=== PATIENT | female | born 1980 | race African-American/Black ===

== ENCOUNTER → 2020-03-30 | Outpatient (CLI) | payer OTHER ==
[2020-03-30 14:18] LABS: HEMATOCRIT 29.1 % (36.0-47.0); HEMOGLOBIN 10.3 g/dL (12.0-15.5); MEAN CORPUSCULAR HEMOGLOBIN 29 pg (25-35); MEAN CORPUSCULAR HGB CONC 35 g/dL (31-37); MEAN CORPUSCULAR VOLUME 82 fL (79-100); PLATELET COUNT 307 x10^3/uL (140-400); RED BLOOD COUNT 3.55 x10^6/uL (3.50-5.40); RED CELL DISTRIBUTION WIDTH 13.3 % (11.5-14.5); WHITE BLOOD COUNT 7.1 x10^3/uL (4.0-11.0)
[2020-03-30 14:52] LABS: FREE T4 0.88 ng/dL (0.76-1.46); THYROID STIM HORMONE (TSH) 2.333 uIU/mL (0.358-3.74)
[2020-03-31 18:09] LABS: RUBELLA IGG ANTIBODY 0.92 index (Immune >0.99)
== END | disposition home or self-care (01) ==
LOC: LAB 12:44
PROVIDERS: ATTEND Obstetrics & Gynecology
DX: O09.92 Supervision of high risk pregnancy, unspecified, second trimester (principal); Z3A.00 Weeks of gestation of pregnancy not specified
CPT/HCPCS: 36415; 82950; 84439; 84443; 85027; 85660; 86592; 86703; 86762; 86787; 86803; 86850; 86900; 86901; 87340

== ENCOUNTER → 2020-04-13 | Outpatient (CLI) | payer OTHER ==
--- NOTE | 2020-04-13 17:56 | KCIC ---
EXAM: Ultrasound OB Greater than 14 weeks INDICATION: Reason: Encounter for 2nd Trimester / Spl. Instructions: / History: TECHNIQUE: Real-time obstetrical ultrasound was performed with permanent freeze-frame documentation. COMPARISON: None. FINDINGS: POSITION: Cephalic HEART RATE: 137 bpm TU: 11.9 cm PLACENTA: Posterior CERVICAL LENGTH: 5.6 cm MATERNAL UTERUS: Unremarkable. MATERNAL ADNEXA: Unremarkable. AGE/DATES: Gestational Age by LMP: 31 weeks 0 days Gestation Age by US: 30 weeks 0 days EDC by LMP: June 15, 2020 EDC by US: June 22, 2020 WEIGHT: 1425 grams +/- 211 grams PERCENTILE WEIGHT: 30% BIOMETRIC PARAMETERS: BPD: 7.6 cm corresponding with 30 weeks 3 days HC: 27.9 cm corresponding with 30 weeks 4 days AC: 25.5 cm corresponding with 29 weeks 5 days FL: 5.5 cm corresponding with 29 weeks 0 days ANATOMY: CARDIAC: Normal four chamber heart. Normal left ventricular outflow tract. The right ventricle outflow tract was not well seen. UMBILICAL CORD: Normal 3 vessel cord. Normal cord insertion. BRAIN: Unremarkable. NOSE/LIPS: Unremarkable. SPINE: Unremarkable. EXTREMITIES: Unremarkable. STOMACH: Unremarkable. KIDNEYS: Unremarkable. BLADDER: Unremarkable. IMPRESSION: Normal OB ultrasound demonstrating a single viable fetus in cephalic position. Estimated gestational age of 30 weeks and 0 days and EDC of June 22, 2020. Electronically signed by: Chip Ortiz MD (04/13/2020 5:53 PM) [id number]
== END ==
LOC: KCIC US 14:43
PROVIDERS: ATTEND Obstetrics & Gynecology
DX: Z34.93 Encounter for supervision of normal pregnancy, unspecified, third trimester (principal); Z3A.30 30 weeks gestation of pregnancy
CPT/HCPCS: 76805

== ENCOUNTER 2020-06-11 12:36 | Inpatient (IN) | payer OTHER ==
[~2020-06-11] VITALS: Ht 172.7 cm; Wt 98.0 kg
[2020-06-11 13:01] VITALS: BP 176/90
[2020-06-11] MEDS: IV RINGERS,LACTATED 1000ML 1,000 ML IV SCH ×2 (13:35→21:35)
[2020-06-11] MEDS ORDERED: LIDOCAINE 1% PF 30 ML VIAL. INJ PRN (13:45)
[2020-06-11] MEDS ORDERED: BUTORPHANOL 2 MG/ML VIAL. IVP PRN ×2 (13:45)
[2020-06-11] MEDS ORDERED: OXYTOCIN 30 UNIT/500 ML PREMIX 500 ML IV PRN ×3 (13:45→22:15)
[2020-06-11] MEDS ORDERED: 0.9 % SODIUM CHLORIDE 10 ML DISP.SYRIN. IV PRN ×2 (13:45→22:15)
[2020-06-11] MEDS ORDERED: LABETALOL 20 MG/4 ML DISP.SYRIN. IVP ONE ×3 (13:45→17:15)
[2020-06-11] MEDS ORDERED: ACETAMINOPHEN 325 MG TABLET. PO PRN ×2 (13:45→22:15)
[2020-06-11] MEDS ORDERED: TERBUTALINE 1 MG/ML VIAL. SQ PRN (13:45)
[2020-06-11 14:14] LABS: BASO # 0.1 x10^3/uL (0.0-0.2); BASO % 2 % (0-3); EOS # 0.1 x10^3/uL (0.0-0.7); EOS % 1 % (0-3); HEMATOCRIT 31.8 % (36.0-47.0); LYMPH # 4.4 x10^3/uL (1.0-4.8); LYMPH % 46 % (24-48); MEAN CORPUSCULAR HEMOGLOBIN 28 pg (25-35); MEAN CORPUSCULAR HGB CONC 35 g/dL (31-37); MEAN CORPUSCULAR VOLUME 80 fL (79-100); MONO # 0.5 x10^3/uL (0.0-1.1); MONO % 5 % (0-9); NEUT # 4.4 x10^3/uL (1.8-7.7); NEUT % 46 % (31-73); PLATELET COUNT 334 x10^3/uL (140-400); RED BLOOD COUNT 3.97 x10^6/uL (3.50-5.40); RED CELL DISTRIBUTION WIDTH 14.6 % (11.5-14.5); WHITE BLOOD COUNT 9.6 x10^3/uL (4.0-11.0)
[2020-06-11] MEDS ORDERED: PENICILLIN G K 5,000,000 UNIT in IV DEXTROSE 5% 100ML 100 ML IV ONE (14:15)
[2020-06-11] MEDS ORDERED: IV RINGERS,LACTATED 1000ML 1,000 ML IV ONE (14:37)
[2020-06-11] MEDS ORDERED: fentaNYL PF VIAL 100 MCG/2 ML VIAL ONE (14:38)
[2020-06-11] MEDS ORDERED: ROPIVacaine 0.2% PF 10 ML VIAL. ONE ×2 (14:38→15:00)
[2020-06-11] MEDS ORDERED: NALOXONE 0.4 MG/ML VIAL. IV PRN (14:45)
[2020-06-11] MEDS ORDERED: ePHEDrine PF IN SALINE 50 MG/10 ML SYRINGE. IV PRN (14:45)
[2020-06-11] MEDS ORDERED: L&D EPIDURAL SYRINGE 50 ML EPID PRN (14:45)
[2020-06-11] MEDS ORDERED: ONDANSETRON PF 4 MG/2 ML VIAL. IV PRN (14:45)
[2020-06-11] MEDS ORDERED: L&D EPIDURAL 50 ML SYRINGE. ONE (15:00)
[2020-06-11] MEDS ORDERED: OXYTOCIN PREMIX 30 UNIT/500 ML NS BAG. IV ONE (15:00)
[2020-06-11 15:02] LABS: ALBUMIN 2.6 g/dL (3.4-5.0); ALBUMIN/GLOBULIN RATIO 0.7 (1.0-1.7); CALCIUM 9.5 mg/dL (8.5-10.1); CREATININE 0.5 mg/dL (0.6-1.0); GFR 167.1; POTASSIUM 3.4 mmol/L (3.5-5.1); TOTAL BILIRUBIN 0.4 mg/dL (0.2-1.0); TOTAL PROTEIN 6.4 g/dL (6.4-8.2); URIC ACID 7.1 mg/dL (2.6-6.0)
--- NOTE | 2020-06-11 15:35 | PDOC1 ---
CHIEF OF SAFETY AND PROTECTION H&P Date of Admission: Date of Admission: Jun 11, 2020 at 12:36 History of Present Illness: EDC: 06/25/20 LMP: 09/25/19 40y @ 38.0 by 27wk u/s presents to L&D with ctxs. On presentation the pt was found to be 5 cm dilated, so she was subsequently admitted. The pt was also found to have a severe range BP so she was txed with Labetalol 20 mg IV. Her BP improved, but after some time the pt required another dose of Labetalol 20 mg IV. The pt denies ROUSSEAU, changes in vision or abd pain. PMH: cHTN PSH: Denies Meds: PNV All: NKDA OBHx: 5 x TSVD SH: no tob, no EtOH FH: noncontributory Medications: Meds: Current Medications Medications (Trade) Dose Ordered Sig/Johanne Route PRN Reason Start Time Stop Time Status Last Admin Dose Admin Butorphanol Tartrate (Stadol) 2 mg PRN Q1HR PRN IVP Severe labor pain 06/11/20 13:45 06/11/20 13:51 Labetalol HCl (Normodyne Iv Push) 20 mg 1X ONCE IVP 06/11/20 13:45 06/11/20 13:46 DC 06/11/20 13:52 Labetalol HCl (Normodyne Iv Push) 20 mg 1X ONCE IVP 06/11/20 14:30 06/11/20 14:31 DC 06/11/20 14:33 Allergies: Coded Allergies: No Known Drug Allergies (Unverified , 06/11/20) Physical Exam: Vital Signs: Vital Signs Date Time Temp Pulse Resp B/P (MAP) Pulse Ox O2 Delivery O2 Flow Rate FiO2 06/11/20 14:33 83 172/81 06/11/20 13:51 16 Room Air PE: GENERAL: No apparent distress. Alert and oriented. HEENT: Head normocephalic, atraumatic. NECK: Supple LUNGS: Clear to auscultation. HEART: RRR, S1, S2 present, pulses intact ABDOMEN: Soft, positive bowel sounds. EXTREMITIES: No cyanosis or edema. NEUROLOGIC: Normal speech, normal tone PSYCHIATRIC: Normal affect, normal mood. SKIN: No ulceration. FHT: 130s +acels/no decels/mLTV [place]: 1-2 min SVE: 7/C/-1 Labs: Laboratory Tests Test 06/11/20 14:05 White Blood Count 9.6 x10^3/uL (4.0-11.0) Red Blood Count 3.97 x10^6/uL (3.50-5.40) Hemoglobin 11.0 g/dL (12.0-15.5) L Hematocrit 31.8 % (36.0-47.0) L Mean Corpuscular Volume 80 fL (79-100) Mean Corpuscular Hemoglobin 28 pg (25-35) Mean Corpuscular Hemoglobin Concent 35 g/dL (31-37) Red Cell Distribution Width 14.6 % (11.5-14.5) H Platelet Count 334 x10^3/uL (140-400) Neutrophils (%) (Auto) 46 % (31-73) Lymphocytes (%) (Auto) 46 % (24-48) Monocytes (%) (Auto) 5 % (0-9) Eosinophils (%) (Auto) 1 % (0-3) Basophils (%) (Auto) 2 % (0-3) Neutrophils # (Auto) 4.4 x10^3/uL (1.8-7.7) Lymphocytes # (Auto) 4.4 x10^3/uL (1.0-4.8) Monocytes # (Auto) 0.5 x10^3/uL (0.0-1.1) Eosinophils # (Auto) 0.1 x10^3/uL (0.0-0.7) Basophils # (Auto) 0.1 x10^3/uL (0.0-0.2) Sodium Level 139 mmol/L (136-145) Potassium Level 3.4 mmol/L (3.5-5.1) L Chloride Level 101 mmol/L (98-107) Carbon Dioxide Level 20 mmol/L (21-32) L Anion Gap 18 (6-14) H Blood Urea Nitrogen 7 mg/dL (7-20) Creatinine 0.5 mg/dL (0.6-1.0) L Estimated GFR (Cockcroft-Gault) 167.1 BUN/Creatinine Ratio 14 (6-20) Glucose Level 88 mg/dL (70-99) Uric Acid 7.1 mg/dL (2.6-6.0) H Calcium Level 9.5 mg/dL (8.5-10.1) Total Bilirubin 0.4 mg/dL (0.2-1.0) Aspartate Amino Transferase (AST) 19 U/L (15-37) Alanine Aminotransferase (ALT) 14 U/L (14-59) Alkaline Phosphatase 99 U/L (46-116) Lactate Dehydrogenase 139 U/L (81-234) Total Protein 6.4 g/dL (6.4-8.2) Albumin 2.6 g/dL (3.4-5.0) L Albumin/Globulin Ratio 0.7 (1.0-1.7) L Treponema pallidum Antibody Nonreactive (Nonreactive) Laboratory Tests 06/11/20 14:05 Laboratory Tests 06/11/20 14:05 Laboratory Tests 06/11/20 14:05 Assessment & Plan: A/P 40y @ 38.0 by 27wk u/s 1.) Active labor 2.) Late presentation to care 3.) AMA - declines NIPT 4.) cHTN pt did not get baseline PIH labs, baseline urine Pr/Cr 0.12, two severe range BPs requiring IV tx, PIH labs wnl 5.) Nexplanon PP 6.) Social issues 7.) Anemia Hgb 11.0 8.) Elevated GTT - never completed 3hr GTT 9.) Rub equiv 10.) Quentin NI 11.) Fetus cat I FHT 12.) GBS pos on PCN 13.) Luiz Sarkar (noris) REGINE HERNANDEZ MD Jun 11, 2020 15:35
--- NOTE | 2020-06-11 15:45 | PDOC ---
VAGINAL DELIVERY DATE DATE: 06/11/20 TIME: 15:44 TIME After the epidural was complete the pts cervical examined and was found to be complete with a bulging bag. AROM performed revealing thick mec. Patient delivered a viable male in OA position over intact perineum at 1511. Wt 5 lb 10.5 oz. Apgars 4/6/8. With delivery the cord revealed a true knot. Placenta delivered spontaneously, intact with 3VC. No lacerations noted. Good hemostasis noted. 20 U of Pit given with IVF. EBL 200cc. WEIGHT Weight [ ] REGINE HERNANDEZ MD Jun 11, 2020 15:45
[2020-06-11] MEDS: PENICILLIN G K 2,500,000 UNIT in IV DEXTROSE 5% 50 ML IV SCH ×2 (19:00→23:00)
[2020-06-11] MEDS ORDERED: IV NORMAL SALINE 1000ML BAG 1,000 ML IV SCH (19:16)
[2020-06-11 21:15] VITALS: BP 106/79
[2020-06-11] MEDS ORDERED: TDaP (Adacel) per PROTOCOL. MC PRN (22:15)
[2020-06-11] MEDS ORDERED: DOCUSATE SODIUM 100 MG CAPSULE. PO PRN (22:15)
[2020-06-11] MEDS ORDERED: PHENYLEPH/MINERAL OIL/PETROLAT RECTAL OINTMENT TUBE. RC PRN (22:15)
[2020-06-11] MEDS ORDERED: SIMETHICONE 80 MG TAB.CHEW PO PRN (22:15)
[2020-06-11] MEDS ORDERED: MAGNESIUM HYDROXIDE 2,400 MG/30 ML ORAL.SUSP. PO PRN (22:15)
[2020-06-11] MEDS ORDERED: HYDROCORTISONE 1% TOPICAL OINTMENT 30GM TUBE. TP PRN (22:15)
[2020-06-11] MEDS ORDERED: ZOLPIDEM 5 MG TABLET. PO PRN (22:15)
[2020-06-11] MEDS ORDERED: MAG HYDROX/ALUMINUM HYD/SIMETH 30 ML ORAL.SUSP PO PRN (22:15)
[2020-06-11] MEDS ORDERED: diphenhydrAMINE HCL 25 MG CAPSULE PO PRN (22:15)
[2020-06-11] MEDS ORDERED: MMR per PROTOCOL. MC PRN (22:15)
[2020-06-11] MEDS ORDERED: BENZOCAINE 20% TOPICAL AEROSOL SPRAY 57GM CAN. TP PRN (22:15)
[2020-06-11] MEDS: IBUPROFEN 400 MG TABLET. PO PRN (22:26)
[2020-06-12 00:59] VITALS: BP 134/72
[2020-06-12] MEDS: PENICILLIN G K 2,500,000 UNIT in IV DEXTROSE 5% 50 ML IV SCH (03:00)
[2020-06-12] MEDS: IV RINGERS,LACTATED 1000ML 1,000 ML IV SCH (03:52)
[2020-06-12] MEDS: oxyCODONE/APAP 5/325 1 TAB TABLET PO PRN ×2 (03:58→15:02)
[2020-06-12 04:57] VITALS: BP 146/95
[2020-06-12] MEDS: FERROUS SULFATE 325 MG TABLET. PO SCH ×2 (08:00→17:00)
[2020-06-12 08:12] LABS: HEMATOCRIT 28.1 % (36.0-47.0); HEMOGLOBIN 9.7 g/dL (12.0-15.5); RED BLOOD COUNT 3.5 x10^6/uL (3.50-5.40); RED CELL DISTRIBUTION WIDTH 14.8 % (11.5-14.5); WHITE BLOOD COUNT 10.9 x10^3/uL (4.0-11.0)
[2020-06-12] MEDS: PRENATAL MULTIVITAMIN TABLET. PO SCH (09:00)
--- NOTE | 2020-06-12 11:40 | PDOC ---
COMPLIANCE SPECIALIST PROGRESS NOTE Date of Service: DATE: 06/12/20 TIME: 11:37 Subjective: Pt with good pain control. Isreal PO. Voiding. Minimal lochia. Denies ROUSSEAU, changes in vision or abd pain. Objective: Vital Signs: Vital Signs Date Time Temp Pulse Resp B/P (MAP) Pulse Ox O2 Delivery O2 Flow Rate FiO2 06/11/20 13:01 99 176/90 (118) 06/11/20 13:21 97.9 97.9 06/11/20 13:51 16 Room Air 06/11/20 21:15 96 Vital Signs Date Time Temp Pulse Resp B/P (MAP) Pulse Ox O2 Delivery O2 Flow Rate FiO2 06/12/20 05:00 Room Air 06/12/20 04:57 98.7 80 18 146/95 (112) 96 98.7 Labs: Laboratory Tests Test 06/11/20 13:40 06/11/20 14:05 06/12/20 07:41 SARS-CoV-2 Antigen (Rapid) Negative (NEGATIVE) White Blood Count 9.6 x10^3/uL (4.0-11.0) 10.9 x10^3/uL (4.0-11.0) Red Blood Count 3.97 x10^6/uL (3.50-5.40) 3.50 x10^6/uL (3.50-5.40) Hemoglobin 11.0 g/dL (12.0-15.5) L 9.7 g/dL (12.0-15.5) L Hematocrit 31.8 % (36.0-47.0) L 28.1 % (36.0-47.0) L Mean Corpuscular Volume 80 fL (79-100) 80 fL (79-100) Mean Corpuscular Hemoglobin 28 pg (25-35) 28 pg (25-35) Mean Corpuscular Hemoglobin Concent 35 g/dL (31-37) 34 g/dL (31-37) Red Cell Distribution Width 14.6 % (11.5-14.5) H 14.8 % (11.5-14.5) H Platelet Count 334 x10^3/uL (140-400) 288 x10^3/uL (140-400) Neutrophils (%) (Auto) 46 % (31-73) Lymphocytes (%) (Auto) 46 % (24-48) Monocytes (%) (Auto) 5 % (0-9) Eosinophils (%) (Auto) 1 % (0-3) Basophils (%) (Auto) 2 % (0-3) Neutrophils # (Auto) 4.4 x10^3/uL (1.8-7.7) Lymphocytes # (Auto) 4.4 x10^3/uL (1.0-4.8) Monocytes # (Auto) 0.5 x10^3/uL (0.0-1.1) Eosinophils # (Auto) 0.1 x10^3/uL (0.0-0.7) Basophils # (Auto) 0.1 x10^3/uL (0.0-0.2) Sodium Level 139 mmol/L (136-145) Potassium Level 3.4 mmol/L (3.5-5.1) L Chloride Level 101 mmol/L (98-107) Carbon Dioxide Level 20 mmol/L (21-32) L Anion Gap 18 (6-14) H Blood Urea Nitrogen 7 mg/dL (7-20) Creatinine 0.5 mg/dL (0.6-1.0) L Estimated GFR (Cockcroft-Gault) 167.1 BUN/Creatinine Ratio 14 (6-20) Glucose Level 88 mg/dL (70-99) Uric Acid 7.1 mg/dL (2.6-6.0) H Calcium Level 9.5 mg/dL (8.5-10.1) Total Bilirubin 0.4 mg/dL (0.2-1.0) Aspartate Amino Transferase (AST) 19 U/L (15-37) Alanine Aminotransferase (ALT) 14 U/L (14-59) Alkaline Phosphatase 99 U/L (46-116) Lactate Dehydrogenase 139 U/L (81-234) Total Protein 6.4 g/dL (6.4-8.2) Albumin 2.6 g/dL (3.4-5.0) L Albumin/Globulin Ratio 0.7 (1.0-1.7) L Treponema pallidum Antibody Nonreactive (Nonreactive) Laboratory Tests 06/11/20 14:05 06/12/20 07:41 Laboratory Tests 06/11/20 14:05 Laboratory Tests 06/11/20 14:05 06/12/20 07:41 Physical Exam: GENERAL: No apparent distress. Alert and oriented. HEENT: Head normocephalic, atraumatic. NECK: Supple LUNGS: Clear to auscultation. HEART: RRR, S1, S2 present, pulses intact ABDOMEN: Soft, positive bowel sounds. EXTREMITIES: No cyanosis or edema. NEUROLOGIC: Normal speech, normal tone PSYCHIATRIC: Normal affect, normal mood. SKIN: No ulceration. FFNT below umb no C/C/E Assessment & Plan: A/P 40y PPD #1 s/p 1.) PP - doing well 2.) cHTN required IV labetalol x 3 during labor and once after delivery, remains w/o s/s of preeclampsia, PIH labs nml on admission 3.) Nexplanon PP 4.) Anemia Hgb 11.0 -> 9.7, on Fe 5.) Rub equiv 6.) Quentin NI 7.) Luiz Sarkar (noris) REGINE HERNANDEZ MD Jun 12, 2020 11:40
[2020-06-12 15:55] VITALS: BP 145/84
[2020-06-12 21:53] VITALS: BP 124/76
[2020-06-13 06:11] VITALS: BP 129/78
[2020-06-13] MEDS: PRENATAL MULTIVITAMIN TABLET. PO SCH (09:00)
[2020-06-13] MEDS: FERROUS SULFATE 325 MG TABLET. PO SCH (10:16)
[2020-06-13] MEDS: IBUPROFEN 400 MG TABLET. PO PRN (10:16)
--- NOTE | 2020-06-13 10:54 | PDOC ---
DATA PROCESSING SYSTEMS CONSULTANT PROGRESS NOTE Date of Service: DATE: 06/13/20 TIME: 10:53 Subjective: Pt with good pain control. Isreal PO. Voiding. Minimal lochaie. Denies ROUSSEAU, changes in vision, or abd pain. Objective: Vital Signs: Vital Signs Date Time Temp Pulse Resp B/P (MAP) Pulse Ox O2 Delivery O2 Flow Rate FiO2 06/12/20 08:20 Room Air 06/12/20 15:02 18 06/12/20 15:55 98.3 79 145/84 (104) 96 98.3 Vital Signs Date Time Temp Pulse Resp B/P (MAP) Pulse Ox O2 Delivery O2 Flow Rate FiO2 06/13/20 09:00 Room Air 06/13/20 06:11 98.3 79 16 129/78 (95) 98 98.3 Physical Exam: GENERAL: No apparent distress. Alert and oriented. HEENT: Head normocephalic, atraumatic. NECK: Supple LUNGS: Clear to auscultation. HEART: RRR, S1, S2 present, pulses intact ABDOMEN: Soft, positive bowel sounds. EXTREMITIES: No cyanosis or edema. NEUROLOGIC: Normal speech, normal tone PSYCHIATRIC: Normal affect, normal mood. SKIN: No ulceration. FFNT below umb no C/C/E Assessment & Plan: A/P 40y PPD #2 s/p 1.) PP - doing well 2.) cHTN required IV labetalol x 3 during labor and once after delivery, remains w/o s/s of preeclampsia, PIH labs nml on admission, BP nml over last 24hrs 3.) Nexplanon PP 4.) Anemia Hgb 11.0 -> 9.7, on Fe 5.) Rub equiv 6.) Quentin NI 7.) Boy - Mello (noris) 8.) D/c home REGINE HERNANDEZ MD Jun 13, 2020 10:54
[2020-06-13] MEDS ORDERED: DOCU-109 PO (10:56)
[2020-06-13] MEDS ORDERED: FERR325T14 PO (10:56)
[2020-06-13] MEDS ORDERED: IBUP-1060 PO (10:56)
--- NOTE | 2020-06-13 12:03 | DS ---
DATE OF DISCHARGE: 06/13/2020 ADMISSION DIAGNOSES: 1. Intrauterine at 38 weeks and 0 days by 27-week ultrasound. 2. Active labor. 3. Chronic hypertension vs chronic hypertension with superimposed preeclampsia. 4. Late presentation to care. 5. Advanced maternal age. 6. Anemia. 7. Elevated GTT but never had 3-hour GTT. 8. Rubella equivocal. 9. Varicella nonimmune. 10. GBS positive. DISCHARGE DIAGNOSES: 1. Intrauterine at 38 weeks and 0 days by 27-week ultrasound. 2. Active labor. 3. Chronic hypertension vs chronic hypertension with superimposed preeclampsia. 4. Late presentation to care. 5. Advanced maternal age. 6. Anemia. 7. Elevated GTT but never had 3-hour GTT. 8. Rubella equivocal. 9. Varicella nonimmune. 10. GBS positive. PROCEDURE: Spontaneous vaginal delivery. BRIEF HOSPITAL COURSE: The patient is a 40-year-old 6, para 5-0-0-5, who presented to Labor and Delivery at 38 weeks and 0 days by 27-week ultrasound with contractions. The patient was found to be 5 cm dilated, so she was subsequently admitted. The patient had a severe range blood pressure on presentation as well. She was treated with IV labetalol 20. Her blood pressures improved. After some time, the patient required additional dose of 20 labetalol. The patient remained without signs or symptoms of preeclampsia, so magnesium was not initiated. The patient ultimately delivered by vaginal delivery early that afternoon. See delivery note for full detail. After delivery, the patient had one more severe range blood pressures requiring IV labetalol, but her subsequent blood pressures after that last treatment required no additional treatment. By day #2, the patient was doing well and desired discharge home. Of note, on presentation, hemoglobin was 11.0; after delivery, it dropped to 9.7. Her iron was continued throughout the . DISCHARGE INSTRUCTIONS: The patient was told not to lift anything greater than 20 pounds, have pelvic rest for 6 weeks. CALL IF: The patient was to call if she had fevers, chills, nausea, vomiting, abdominal pain, headache, changes in vision or any additional questions or concerns. FOLLOWUP APPOINTMENT: The patient is to follow up on 06/19/2020 for blood pressure check. DISCHARGE MEDICATIONS: The patient was given a prescription for Motrin 800 mg 30 pills, Colace 100 mg 30 pills and ferrous sulfate 325 mg 30 pills. REGINE HERNANDEZ MD DR: Thania JOB#: [id number] / [id number] PRANEETH
[2020-06-13 12:45] VITALS: BP 145/84
[2020-06-13 15:45] VITALS: BP 145/80
--- NOTE | 2020-06-13 16:20 | NUR ---
Discharge Note: Pt. ambulatory, escorted by Neeru Laboy RN to vehicle with baby in car seat, significant other, and belongings present. Pt. discharged home. Mykel Lynn RN
--- NOTE | 2020-06-14 22:09 | PATHOLOGY ---
[facility] Accession Number: [id number] . 01 Material submitted: . placenta - PLACENTA WITH CORD . 01 Clinical history: . ADVANCED MATERNAL AGE, HYPERTENSION, EDC: 06-25-2020;GA: 40.0 . 02 Diagnosis: "Placenta with cord": - Third trimester placenta weighing 495 grams. - Three vessel umbilical cord with no significant inflammation. - Chorioamninotic membranes with diffuse mild to moderate acute chorioamnionitis. - Amnion with scattered pigmented macrophages. (CLW:felisa; 06/14/2020) S 06/14/2020 1527 Local . 02 Electronically signed: . Mita Begum MD, Pathologist NPI- [id number] . 01 Gross description: . The specimen is received in formalin, labeled "Mickie Milner, placenta". Received is a mcclure placenta with attached membranes and umbilical cord with a trimmed placental weight of 495 g and measuring 17.8 x 15.4 x 2.5 cm in greatest dimensions. The membranes are pink-biggs to preston-green in appearance, and the site of membrane rupture is at the placental margin. The surface is intact displaying a normal arborizing vasculature pattern, as well as a completely detached amnion. The trivascular umbilical cord measures 14.3 cm in length by 1.5 cm in diameter and inserts centrally, 6.3 cm from the closest placental margin. The umbilical cord is pale preston in appearance with moderate helical twisting. The maternal surface is intact and complete; a slight amount of adherent blood coagulum is seen on the surface. Sectioning reveals red-brown cut surfaces with no grossly distinct nodules or lesions. The specimen is submitted representatively as follows: . A1 proximal umbilical cord and surface vessels A2 umbilical cord and membrane roll A3-A4 merchandising representative sections of maternal surface. (CAA; 06/13/2020) QAC/QAC 06/13/2020 1748 Local . 02 Pathologist provided ICD-10: O41.1230, Z37.0, Z3A.39 . 02 CPT . 976846 Specimen Comment: Report sent to Performed at: 01 [facility] [address] [facility] [address], [place] [id number] MD Ravindra Austin MD Phone: [phone] Performed at: 02 [facility] [address] [place], [place] [id number] MD Josue Bolden MD Phone: [phone]
== END 2020-06-13 16:20 | disposition home or self-care (01) | DRG 806 ==
LOC: OBSVTOIN 12:36 → 3 SO LND 12:36 → 3 NORTH 20:58
PROVIDERS: ADMIT Obstetrics & Gynecology; ATTEND Obstetrics & Gynecology
PROC: 10E0XZZ Delivery of Products of Conception, External Approach (ICD-10-PCS; principal; 2020-06-11)
PROC: 10907ZC Drainage of Amniotic Fluid, Therapeutic from Products of Conception, Via Natural or Artificial Opening (ICD-10-PCS; 2020-06-11)
PROC: 3E0R3BZ Introduction of Anesthetic Agent into Spinal Canal, Percutaneous Approach (ICD-10-PCS; 2020-06-11)
PROC: 00HU33Z Insertion of Infusion Device into Spinal Canal, Percutaneous Approach (ICD-10-PCS; 2020-06-11)
DX: O69.2XX0 Labor and delivery complicated by other cord entanglement, with compression, not applicable or unspecified (principal); O10.92 Unspecified pre-existing hypertension complicating childbirth; Z37.0 Single live birth; O98.52 Other viral diseases complicating childbirth; O99.02 Anemia complicating childbirth; D64.9 Anemia, unspecified; O11.4 Pre-existing hypertension with pre-eclampsia, complicating childbirth; O99.824 Streptococcus B carrier state complicating childbirth; Z20.828 Contact with and (suspected) exposure to other viral communicable diseases; O77.0 Labor and delivery complicated by meconium in amniotic fluid; Z3A.38 38 weeks gestation of pregnancy
CPT/HCPCS: 36415; 80053; 83615; 84550; 85025; 85027; 86592; 86850; 86900; 86901; 87426; J0595; J2590; J2795; J3010; J3490; U0003; G0378

== ENCOUNTER 2021-06-20 13:34 | Emergency (ER) | payer MEDICAID, OTHER ==
[~2021-06-20] VITALS: Ht 172.7 cm; Wt 107.8 kg
[~2021-06-20 13:34] MED LIST: DOCU-109 PO; FERR325T14 PO; IBUP-1060 PO
[2021-06-20 13:55] VITALS: BP 156/90
--- NOTE | 2021-06-20 14:05 | PHYS DOC ---
Past Medical History Past Surgical History: No Surgical History General Adult EDM: Chief Complaint: BACK PAIN - NO INJURY HPI: HPI: Patient is a 41-year-old female who presents to the emergency department for left-sided thoracic back pain that started 3 days ago. Patient denies any injury or heavy lifting. She rates her pain 7 out of 10. No treatment prior to arrival. The pain is an ache. Is worse when laying flat. She denies any urinary symptoms, loss of bowel or bladder, saddle anesthesias or numbness or tingling down her extremities. Review of Systems: Review of Systems: 14 body systems of the review of systems have been reviewed. See HPI for pertinent positive and negative responses, otherwise all other systems are negative, nonpertinent or noncontributory Heart Score: C/O Chest Pain: N/A Risk Factors: Risk Factors: DM, Current or recent (<one month) smoker, HTN, HLP, family history of CAD, obesity. Risk Scores: Score 0 - 3: 2.5% MACE over next 6 weeks - Discharge Home Score 4 - 6: 20.3% MACE over next 6 weeks - Admit for Clinical Observation Score 7 - 10: 72.7% MACE over next 6 weeks - Early Invasive Strategies Allergies: Allergies: Allergies Coded Allergies Type Severity Reaction Last Updated Verified No Known Drug Allergies 06/11/20 No Physical Exam: PE: Constitutional: Well developed, well nourished, no acute distress, non-toxic appearance. [] HENT: Normocephalic, atraumatic, bilateral external ears normal, oropharynx moist, no oral exudates, nose normal. [] Eyes: PERRL, EOMI, conjunctiva normal, no discharge. [] Neck: Normal range of motion, no bony spinal cervical tenderness, supple, no s tridor. [] Cardiovascular:Heart rate regular rhythm, no murmur [] Lungs & Thorax: Bilateral breath sounds clear to auscultation [] Abdomen: Bowel sounds normal, soft, no tenderness, no masses, no pulsatile masses. [] Skin: Warm, dry, no erythema, no rash. [] Back: No bony spinal tenderness, no CVA tenderness, normal range of motion, left sided thoracic paraspinal tenderness with palpation. [] Extremities: No tenderness, no cyanosis, no clubbing, ROM intact, no edema. [] Neurologic: Alert and oriented X 3, normal motor function, normal sensory function, no focal deficits noted. [] Psychologic: Affect normal, judgement normal, mood normal. [] Current Patient Data: Labs: Laboratory Tests Test 06/20/21 14:15 Urine Collection Type Unknown Urine Color Yellow Urine Clarity Clear Urine pH 6.0 Urine Specific [place] 1.025 Urine Protein Negative mg/dL Urine Glucose (UA) Negative mg/dL Urine Ketones (Stick) Negative mg/dL Urine Blood Negative Urine Nitrite Negative Urine Bilirubin Negative Urine Urobilinogen Dipstick 1.0 mg/dL Urine Leukocyte Esterase Negative Urine RBC 0 /HPF Urine WBC 0 /HPF Urine Squamous Epithelial Cells Mod /LPF Urine Bacteria 0 /HPF Urine Mucus Mod /LPF Bedside Urine HCG, Qualitative Hcg negative Current Medications Medications (Trade) Dose Ordered Sig/Johanne Route PRN Reason Start Time Stop Time Status Last Admin Dose Admin Ketorolac Tromethamine (Toradol 30mg Vial) 30 mg 1X ONCE IM 06/20/21 14:45 06/20/21 14:49 DC 06/20/21 15:20 Orphenadrine Citrate (Norflex) 60 mg 1X ONCE IM 06/20/21 14:45 06/20/21 14:49 DC Vital Signs: Vital Signs Date Time Temp Pulse Resp B/P (MAP) Pulse Ox O2 Delivery O2 Flow Rate FiO2 06/20/21 13:55 98.4 68 20 156/90 (112) 99 Room Air 98.4 EKG: EKG: [] Radiology/Procedures: Radiology/Procedures: []PROCEDURE: CT THORACIC SPINE WO CONTRAST CT scan of the thoracic spine without contrast 06/20/2021 CLINICAL HISTORY: Mid back pain. TECHNIQUE: Unenhanced contiguous, 0.625 mm axial sections were obtained through the thoracic spine. 3 mm reconstructed sagittal, axial and coronal images were obtained. One or more of the following individualized dose reduction techniques were utilized for this study: 1. Automated exposure control. 2. Adjustment of the mA and/or kV according to patient size. 3. Use of iterative reconstruction technique. FINDINGS: Sagittal and coronal reconstructed images demonstrate minimal S-shaped curvature of the thoracolumbar spine. Degenerative changes consisting of vertebral endplate sclerosis and minimal to mild anterior vertebral body osteophyte formation is seen scattered throughout the thoracic disc spaces. Mild to moderate bullous changes are seen involving both upper lobes. No fracture or subluxation of the thoracic vertebrae is noted. Degenerative changes are seen involving the thoracic disc spaces consisting of minimal to mild generalized disc bulges and degenerative changes involving the facet joints. These findings do not result in significant central spinal canal or neural foraminal stenosis. IMPRESSION: Degenerative changes are seen involving the thoracic spine as discussed above. These findings do not result in significant central spinal canal or neural foraminal stenosis. No acute osseous abnormality is seen. Electronically signed by: William Noriega MD (06/20/2021 3:25 PM) [id number] DICTATED and SIGNED BY: WILLIAM NORIEGA MD DATE: 06/20/21 [id number] 0 Course & Med Decision Making: Course & Med Decision Making Pertinent Labs and Imaging studies reviewed. (See chart for details) [] Patient presents emergency department for thoracic back pain. CT imaging was performed that showed no acute findings. Urinalysis performed to rule out pyelonephritis. Urinalysis showed no acute findings.. Patient treated in the emergency department with anti-inflammatory and muscle relaxer. I discussed with patient all findings and diagnostic testing as well as the need to follow- up with PCP for further evaluation and treatment or return to the ER if any new or worsening symptoms. Strict return precautions were also discussed at length. Patient voiced understanding and agreement with the plan. Patient is hemodynamically stable at the time of disposition. Maria De Jesus Disclaimer: Maria De Jesus Disclaimer: This electronic medical record was generated, in whole or in part, using a voice recognition dictation system. Departure Departure Impression: Primary Impression: Back pain Qualified Codes: M54.6 - Pain in thoracic spine Disposition: HOME / SELF CARE / HOMELESS Condition: GOOD Referrals: NO PCP (PCP) Patient Instructions: Back Pain, Adult Additional Instructions: You were seen in the emergency department for thoracic back pain. CT imaging showed no acute findings. A urinalysis was performed to rule out a kidney infection or urinary tract infection and this was unremarkable. You were treated in the emergency department with an anti-inflammatory medication and muscle relaxer. Please take anti-inflammatory medications like ibuprofen or naproxen at home. You are being discharged home with a muscle relaxer that you can take, take this as directed. This medication may cause drowsiness so do not take continues to be alert, driving a vehicle or operating machinery or with a ny alcohol. Follow-up with your primary care provider within the week regarding your ER visit. Return to the emergency department if you develop worsening of your back pain, loss of bowel or bladder, new injuries, numbness or tingling in your groin or down your legs, pain with urination or blood in your urine. Scripts Cyclobenzaprine Hcl (CYCLOBENZAPRINE HCL) 5 Mg Tablet 1 TAB PO TID for muscle spasm for 7 Days, #21 TAB 0 Refills Prov: CARLINE MORROW APRN 06/20/21 CARLINE MORROW APRN Jun 20, 2021 14:05
[2021-06-20 14:25] LABS: BILIRUBIN,URINE NEGATIVE (NEG); CLARITY,URINE CLEAR; COLOR,URINE YELLOW; NITRITE,URINE NEGATIVE (NEG); PROTEIN,URINE NEGATIVE (NEG-TRACE)
[2021-06-20 14:41] LABS: BACTERIA,URINE 0 /HPF (0-FEW); RBC,URINE 0 /HPF (0-2); WBC,URINE 0 /HPF (0-4)
[2021-06-20] MEDS ORDERED: KETOROLAC 30 MG/ML VIAL. IM ONE (14:45)
[2021-06-20] MEDS ORDERED: ORPHENADRINE CITRATE 60 MG/2 ML VIAL. IM ONE (14:45)
--- NOTE | 2021-06-20 15:27 | RAD ---
CT scan of the thoracic spine without contrast 06/20/2021 CLINICAL HISTORY: Mid back pain. TECHNIQUE: Unenhanced contiguous, 0.625 mm axial sections were obtained through the thoracic spine. 3 mm reconstructed sagittal, axial and coronal images were obtained. One or more of the following individualized dose reduction techniques were utilized for this study: 1. Automated exposure control. 2. Adjustment of the mA and/or kV according to patient size. 3. Use of iterative reconstruction technique. FINDINGS: Sagittal and coronal reconstructed images demonstrate minimal S-shaped curvature of the tho racolumbar spine. Degenerative changes consisting of vertebral endplate sclerosis and minimal to mild anterior vertebral body osteophyte formation is seen scattered throughout the thoracic disc spaces. Mild to moderate bullous changes are seen involving both upper lobes. No fracture or subluxation of the thoracic vertebrae is noted. Degenerative changes are seen involving the thoracic disc spaces consisting of minimal to mild genera lized disc bulges and degenerative changes involving the facet joints. These findings do not result i n significant central spinal canal or neural foraminal stenosis. IMPRESSION: Degenerative changes are seen involving the thoracic spine as discussed above. These find ings do not result in significant central spinal canal or neural foraminal stenosis. No acute osseous abnormality is seen. Electronically signed by: William Scott MD (06/20/2021 3:25 PM) [id number]
[2021-06-20] MEDS ORDERED: CYCL5TAB PO (15:38)
== END 2021-06-20 16:00 | disposition home or self-care (01) ==
LOC: ER 13:34
DX: M54.6 Pain in thoracic spine (principal)
CPT/HCPCS: 72128; 81001; 81025; 96372; 99284; J1885; J2360

== ENCOUNTER 2021-11-16 19:46 | Emergency (ER) | payer MEDICAID ==
[~2021-11-16 19:46] MED LIST changes: +CYCL5TAB PO
== END 2021-11-16 20:15 | disposition left against medical advice (07) ==
LOC: ER 19:46
DX: J02.9 Acute pharyngitis, unspecified (principal); Z53.21 Procedure and treatment not carried out due to patient leaving prior to being seen by health care provider